=== PATIENT | male | born 1990 | race African-American/Black ===

== ENCOUNTER → 2019-11-22 | Outpatient (CLI) | payer OTHER | LOC: M.WC 07:55 | PROVIDERS: ATTEND Surgery | DX: T81.31XA Disruption of external operation (surgical) wound, not elsewhere classified, initial encounter (principal); Y92.238 Other place in hospital as the place of occurrence of the external cause; Y83.8 Other surgical procedures as the cause of abnormal reaction of the patient, or of later complication, without mention of misadventure at the time of the procedure ==